=== PATIENT | female | born 1960 | race Caucasian/White ===

== ENCOUNTER → 2017-02-18 | Outpatient (CLI) | payer BC ==
--- NOTE | 2017-02-18 18:36 | RADRPT ---
PROCEDURE: Left knee radiographs. CLINICAL INDICATION: Left knee pain. TECHNIQUE: Three views. Weight bearing. Frontal, lateral, and patellar view. COMPARISON: No prior studies are available for comparison. FINDINGS: There is no fracture or dislocation. The soft tissues are normal. There is diffuse osteopenia. There are degenerative changes with osteophytes arising from all 3 joint compartment margins. There is medial, lateral, and patellofemoral joint compartment narrowing and deformity. There is no lytic or blastic lesion. There is no radiopaque foreign body. IMPRESSION: 1. Diffuse osteopenia. 2. Severe degenerative change. RPTAT: QQ .Yunior Tran MD, MD Date Time Electronically viewed and signed by .Yunior Tran MD, on 02/18/2017 18:35 .R/
--- NOTE | 2017-03-11 22:31 | HKNOTE ---
DATE OF SERVICE: 02/18/2017 MAIN COMPLAINT: Pain in the left knee. HISTORY OF MAIN COMPLAINT: The patient is a 56-year-old female who complains of pain in her left kn ee. She is well known to me. She has previously undergone bilateral total hip replacements perform ed by me. She has been very pleased with the results of the surgeries. The patient complains that her severe left knee pain began in 09/2016 when she squatted down for abo ut 45 minutes cleaning a carpet. She was able to get up and walk, but since that time, she has had ongoing pain in the left knee. PRESENT COMPLAINTS: The left knee does not swell, lock, or feel unstable. She does, however, gets pain in the knee with every step that she takes. Pain varies between mild to severe "depending on t he day." Her pain is aggravated by walking, weightbearing, and stair climbing. She does not get re st pain, but she does get pain at night. She takes Tylenol for the pain. She has tried stronger pa in medication, but has not found anything to give her relief. She does not have any back pain. No numbness or tingling in her legs. She uses a cane to get around. Lately, she has been sleeping in a reclining chair, where it is difficult for her to get in and out of bed. She does limp all the time. The left leg feels longer than the right leg. She does not mcmullen ve a shoe lift. It is difficult for her to clip her toenails, but she can put on her shoes and sock s. PAST ORTHOPEDIC HISTORY: OPERATIONS: Bilateral hip replacements about 7 years ago performed by Dr. Klein. She has been very pleased with results of the surgeries. PRIOR CORTISONE INTAKE: None. ALCOHOL INTAKE: "One drink a year." OTHER JOINT PROBLEMS: None. BLOOD TESTS FOR ARTHRITIS: None. PRIOR INJURIES TO HIPS OR KNEES: None. WORK STATUS: The patient states that she sits at work most of the day. Currently, she is working f rom home because of her knee pain (for the last month). PAST MEDICAL HISTORY: Negative. PAST SURGICAL History: 1. Two knee replacements, 7 years ago. 2. Gastric bypass surgery by Dr. Black, 12 years ago. 3. Gallbladder removed, 14 years ago. PREVIOUS MAJOR INJURIES: None. FAMILY HISTORY: Father at 70 of unstated cause. Mother, age 82, alive and well. SYSTEMS REVIEW: Entirely negative. HABITS: The patient does not smoke or drink alcoholic beverages. PRIMARY CARE PHYSICIAN: None listed. PHYSICAL EXAMINATION: GENERAL: The patient is a fit-looking, but overweight, 56-year-old female. VITAL SIGNS: Height 5 feet 8 inches, weight 250 pounds. Blood pressure 190/80, temperature 98.2. Pulse 67 per minute, respirations 12 per minute. The patient states that her weight is 250 pounds, but she has not weighed herself for some time. In my estimation, she probably weighs 300 pounds. S he walks with a cane. She has an antalgic gait. HIPS: Both hips have a full range of motion without pain. No tenderness anywhere around either hip . LEFT KNEE: The left knee shows normal alignment. Active and passive extension is full. Active and passive flexion is to 70 degrees (marked pain. The medial and lateral collateral ligaments and cru ciate ligaments are intact. Davina test is negative. There is no effusion, tenderness, scarring, crepitus, or cysts. The patella tracks normally. There is no tenderness on the articular surface o f the patella or in the patellar groove. The Q angle is normal. RIGHT KNEE: The right knee shows normal alignment. Active and passive extension is 0 degrees. Act marium and passive flexion is 135 degrees. The medial and lateral collateral ligaments and cruciate li gaments are intact. Davina test is negative. There is no effusion, tenderness, scarring, or cysts . 4+ crepitus in the knee. None in the patella. The patella tracks normally. There is no tendern ess on the articular surface of the patella or in the patellar groove. The Q angle is normal. IMAGING: Plain x-rays of the left knee obtained at the [facility] were reviewed. These show exceedingly severe degenerative osteoarthritis of all 3 compartments of the knee. Ther e is [id number] contact in the medial compartment, large osteophytes throughout. Subchondral scle rosis. DIAGNOSES: 1. Exceedingly severe degenerative osteoarthritis of the left knee. 2. Morbid obesity. 3. Status post bilateral hip replacements. MANAGEMENT: The patient is advised that she will definitely need to have a left knee replacement at sometime in the near future. The procedure and some of the major possible complications were discu ssed with her in a fair amount of detail. She was referred to my website [employer]. She is advised that she will need to lose weight before she has the surgery. The reasons for this w ere explained to her in detail including, among others, the effects of a heavy person on the che of the knee implants to the bone. FINAL DIAGNOSES: 1. Exceedingly severe degenerative osteoarthritis of the left knee. 2. Morbid obesity. 3. Status post bilateral hip replacements. Under sterile conditions, the patient was given an injection of 2 mL of Kenalog and 10 mL of 2% lido chun into the left knee. She is advised that she may return no less than every 3 months for repeat injections. She will be s een again as necessary for further evaluation and treatment. Dictated By: EMILY PETERSON/LAURA Conf#: [id number] DID#: [id number]
== END | disposition home or self-care (01) ==
LOC: HKI 16:18
DX: M25.562 Pain in left knee (principal); M17.12 Unilateral primary osteoarthritis, left knee; E66.09 Other obesity due to excess calories; Z96.643 Presence of artificial hip joint, bilateral
CPT/HCPCS: 20610; 73562; G0463